=== PATIENT | female | born 1995 ===

== ENCOUNTER 2025-05-30 17:58 | Emergency (ER) | payer OTHER, SELFPAY ==
--- OUTSIDE RECORDS SUMMARY | 2024-04-28 07:30 | XMS_ITS ---
Author Organization [facility] Address [address] [place] [id number] Care Team Providers Care Photographer Apprentice Name Role Phone CHUY CHUN Unavailable [phone] REASON FOR VISIT depo/testing Social History Sex Assigned At : Social History Observation Description Sex Assigned At Female Encounters Encounter Location Date Provider Diagnosis [facility] [address] [place] [address] it[place], [place] [id number] 04/28/2024 CHUY CHUN Plan Of Treatment No Information Progress Notes * Sherry WILLIAMSON MDOB: [birth year] (30 yo F)Acc No.[id number]:04/28/2024 Progress Notes Patient: Grant Mcdonaldisha Teresita Provider: Wayne Chun NP :1995 A ge:29 Y S ex:Female Date:04/28/2024 Address:[address] [place], [place] [id number] Subjective: * Chief Complaints: * D epo/testing Billing Information: * Procedure Codes: * Electronic signature of COLETTE CHUN NP on 05/30/2025 at 09:48 PM EDT Sign off status: Pending * Provider: Wayne Chun NP Date: 04/28/2024 Generated for Printi ng/Faxing/eTransmitting on: 05/30/2025 09:48 PM EDT
[2025-05-30 18:05] VITALS: BP 143/66; PULSE 89; RESP 18; TEMP 36.9; O2SAT 100; BMI 47.1
--- NOTE | 2025-05-30 18:06 | ED.GENADULT ---
HPI - General Adult General Chief complaint: Allergic Reaction Stated complaint: Allergic reaction Time Seen by Provider: 05/30/25 18:05 Source: patient, RN notes reviewed and old records reviewed Mode of arrival: ambulatory Limitations: no limitations History of Present Illness ED Provider: Ilya [facility] narrative: Patient is a 30-year-old female presenting to the ED with complaint of bilateral eye itching, swelling and watery drainage after being around her parents' dog. Also complains of some congestion, shortness of breath and mild chest pain. States that she took Zyrtec prior to arrival which did improve some of her symptoms but not her eyes. Denies any changes in vision. Does not wear contact lenses. MD complaint: eye itching Onset (ago): hour(s) Related Data Previous Rx's ?Medication ?Instructions ?Recorded erythromycin 5 mg/gram (0.5 %) eye 0.5 inch ophthalmic (eye) BID 5 05/30/25 ointment days #3.5 grams prednisone 10 mg tablet See Rx Instructions .Route 05/30/25 .COMPLEX #15 tabs Allergies Allergy/AdvReac Type Severity Reaction Status Date / Time acetaminophen (From Tylenol) Allergy Intermediate Hives Verified 05/30/25 18:08 animal dander Allergy Intermediate Itching Verified 05/30/25 18:08 dog dander Allergy Intermediate Itching Verified 05/30/25 18:08 Review of Systems Review of Systems: As per HPI Yes all other systems are reviewed and are negative Constitutional: Constitutional: Reports as per HPI [facility] Social History Social History Advance Directives: No Advance Directives Information Provided: No Physical Exam ED Vital Signs: Vital Signs - 24 hr 05/30/25 18:05 Temperature 98.5 F Pulse Rate 89 Respiratory Rate 18 Blood Pressure 143/66 H Pulse Oximetry 100 Oxygen Delivery Method Room Air BMI result Body Mass Index 47.1 Vital signs have been reviewed and appear to be correct. Blood pressure normal. Heart rate normal. Respiratory rate normal. Temperature normal. Oxygen saturation normal. Const General: cooperative, healthy appearing and no acute distress Orientation/consciousness: oriented to person, oriented to place, oriented to time and patient oriented x3 Limitations: no limitations HENMT Head: Yes normocephalic and Yes atraumatic Ears: external ears normal General nose exam: Normal external nose present Face and sinus: Yes face symmetric Mouth: oropharynx normal and moist mucous membranes Throat: Yes uvula midline and No uvular edema Eyes Visual Marin: normal visual marin by confrontation Alignment and Position: alignment normal and position normal Eyelids: Yes eyelid abnormality (swelling and erythema to bilateral upper eyelids) Conjunctivae: conjunctival abnormal bilateral conjunctival injection diffuse and discharge other (watery) Corneas: corneas normal Pupils: Equal, round and reactive pupils present and Pupil accommodation reflex normal EOM: EOMs intact bilaterally Neck Neck: Yes normal visual inspection and Yes supple Resp Effort & Inspection: normal respiratory effort and able to speak in complete sentences Auscultation: clear to auscultation bilaterally Cardio Rate: regular rate Rhythm: regular rhythm Heart sounds: S1 normal heart sound present and S2 normal heart sound present GI Palpation (GI): Soft to palpation and nontender Auscultation: normoactive bowel sounds General: Yes no CVA tenderness Back/Spine/Pelvis Back: no CVA tenderness Skin General skin exam: elasticity normal and turgor normal Neuro General: oriented to person, oriented to place, oriented to time, patient oriented x3, moves all extremities, no focal motor deficits and CN's II-XI intact bilaterally Cranial nerves: Yes Equal, round and reactive pupils present Cognition (Neuro): normal cognition Extrem General: Yes full ROM, Yes no pedal edema and Yes no calf tenderness Psych Mental Status: mental status grossly normal Affect: normal affect Thought process: Normal thought process present Medical Decision Making Medical Decision Making [facility] Narrative: Patient is a 30-year-old female presenting to the ED with complaint of bilateral eye itching, swelling and watery drainage after being around her parents' dog. On exam patient is awake, A+Ox3, VS WNL, afebrile, normal neurological exam without focal deficits, physical exam findings as above. Given reported symptoms and physical exam findings, initial differential includes but is not limited to allergic rhinitis, allergic versus viral versus bacterial conjunctivitis. HPI consistent with allergic conjunctivitis. EKG shows NSR. Will start patient on course of prednisone, advised that she continue with Zyrtec. Will also send prescription for erythromycin ointment. Return precautions discussed. Patient verbalized understanding of and agreement with plan. Differential Diagnosis Differential Diagnoses: The differential diagnosis associated with the presentation includes as per mdm Independent Interpretation I performed an independent interpretation of an: EKG (normal sinus rhythm, rate 80bpm, normal UT interval and QTc) External Record Review External record reviewed: Inpatient record, Office record and Outpatient record Prescription Management I considered prescription management with: Antibiotic and Other Discharge Plan Discharge Clinical Impression: Acute allergic conjunctivitis of both eyes Patient Disposition: Home, Self-Care Instructions: Conjunctivitis (ED) Additional Instructions: You were evaluated in the emergency department today for eye redness, itching, and discharge. You are being treated for conjunctivitis with antibiotic ointment. You are also being treated with prednisone which is a steroid to decrease inflammation. Please complete the full courses as prescribed. Continue to take a daily Zyrtec. Be sure to wash hands thoroughly before and after touching your eyes. You should follow up with your primary care provider or retail sales manager this week. Return to the emergency department if you develop changes in vision, increasing pain, fever 100.4F or greater, or any other concerning symptoms. Prescriptions: New prednisone 10 mg tablet See Rx Instructions .ROUTE .COMPLEX Qty: 15 0RF Rx Instructions: 50mg (5 tabs) x1 day, then 40 mg (4 tabs) x1 day, then 30 mg (3 tabs) x1 day, then 20 mg (2 tabs) times 1 day, then 10 mg (1 tab) x1 day erythromycin 5 mg/gram (0.5 %) ointment 0.5 inch ophthalmic (eye) BID 5 Days Qty: 3.5 0RF Print Language: Citizen [place]
--- NOTE | 2025-05-30 18:10 | ECG_ITS ---
Test Reason : CP Blood Pressure : */* mmHG Vent. Rate : 80 BPM Atrial Rate : 80 BPM P-R Int : 138 ms QRS Dur : 86 ms QT Int : 380 ms P-R-T Axes : 49 51 11 degrees QTcB Int : 438 ms Normal sinus rhythm Normal ECG No previous ECGs available Referred By: Uma Caraballo Electronically Signed By: SLIM MACKENZIE
--- OUTSIDE RECORDS SUMMARY | 2025-05-30 21:49 | XMS_ITS | Clinical Summary ---
Author Organization [facility] Address [address] [place] [address] Phone Care Team Providers Care Systems Administrator Name Role Phone Unknown, Unknown Primary Care Provider Jai Alexander MD Unavailable [phone] Allergies Active Allergy Reactions Criticality Noted Date Comments Acetaminophen Rash Low 02/26/2019 Acetaminophen 10/15/2022 Medications * This document contains information received from the source organization and may not represent a complete record from that organization. ibuprofen (ADVIL,MOTRIN) 600 MG tablet Take 1 tablet (600 mg total) by mouth every 8 (eight) hours as needed for pain (specific location in comments) or fever. 15 tablet 0 Active bacitracin 500 unit/gram ointment Apply topically 2 (two) times a day. Apply to face and arms. 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/26/2019 Immunizations Immunization Administration Dates Next Due Tdap 10/12/2022 Family History Medical History Relation Comments Autism Brother Hyperlipidemia Father Hypertension Father Diabetes Maternal Grandfather Heart disease Maternal Grandmother Hearing loss Maternal Uncle Mental retardation Maternal Uncle Thyroid disease Mother COPD Paternal Grandmother Diabetes Paternal Grandmother Relation Status Comments Brother Father Maternal Grandfather Maternal Grandmother Maternal Uncle Mother Paternal Grandmother Social History Tobacco Use Types Packs/Day Years Used Date Smoking Tobacco: Every Day Cigarettes Smokeless Tobacco: Never Tobacco Cessation:Ready to Q uit: Not Asked; Counseling Given: Not Answered Alcohol Use Standard Drinks/Week Comments Yes 0 (1 standard drink = 0.6 oz pur e alcohol) Education Answer Date Recorded Are you interested in more education? Not on margaret e 01/11/2023 Are you concerned about learning? Not on file 01/11/2023 No 01/11/2023 No 01/11/2023 Digital Access Answer Date Recorded No 02/11/2023 No 02/11/2023 Reliable internet access at home? Not on file 02/11/2023 Device with a working camera? Not on file Comments No Sex and Gender Information Value Date Recorded Sex Assigned at Female 10/22/2022 3:50 PM EST Legal Sex Female 4:39 PM EST Gender Identity Female 10/22/2022 3:50 PM EST Sexual Orientation Straight 10/22/2022 3: 50 PM EST Last Filed Vital Signs Vital Sign Reading Time Taken Comments Blood Pressure 130/84 10/23/2022 11:30 AM EST Pulse 87 10/23/2022 11:30 AM EST Temperature 36.9 C (98.5 F) 10/23/2022 11:30 AM EST Respiratory Rate 18 10/12/2022 8:43 PM EST Oxygen Saturation 98% 10/23/2022 11:30 AM EST Inhaled Oxygen Concentration - - Weight 120.2 kg (265 lb) 10/12/2022 6:59 PM EST Height 160 cm (5' 3 ) 10/12/2022 6:59 PM EST Body Mass Index 46.94 10/12/2022 6:59 PM EST Plan of Treatment Health Maintenance Due Date Last Done Comments DEPRESSION SCREENING 2005 SMOKING Hx and SMOKELESS TOBACCO SCREENING 2006 HEPATITIS C SCREENING 2011 HIV ONE-TIME SCREENING (18-65 YEARS) 2011 PNEUMOCOCCAL VACCINES (0-49 years) (1 of 2 - PCV) 2012 PAP SMEAR 2014 INFLUENZA VACCINE (#1) 2025 COVID-19 VACCINE (2 - 2024- season) 2025 06/08/2021 Adult Td,Tdap Booster 10/12/2032 10/12/2022 , 05/17/2021, 07/26/2016, Additional history exists HIB VACCINES Completed 06/25/1994, 01/1994, 1993, Additional history exists MENINGOCOCCAL VACCINES (ACWY) Completed 02/27/2012, 07/10/2007 HEPATITIS A VACCINES Aged Out No long er eligible based on patient's age to complete this topic MENINGOCOCCAL VACCINES (B) Aged Out N o longer eligible based on patient's age to complete this topic Medical Devices Not on file [facility] [place] [address] [facility] [address] [place], [place] [address] [place] [address] [facility] [employer] [facility] [address] [place], [place] [address] [place], [place] [address] [employer] Advance Directives For more information, please contact: [phone] (9AM - 5PM [facility], Friday-Friday) * Full Code (Presumed) (Latest Code Status on File) Date Activated Date Inactivated Comments 02/26/2019 1:29 AM 03/02/2019 7:43 PM Care Teams Systems Administrator Relationship Specialty Start Date End Date Unknown, Unknown, PCP - General 10/12/22 Jai Morfin MD [address] [place] [address] Internal Medicine 10/12/22 Additional Source Comments The information contained in this document represents components of the legal health record. It is not the complete legal health record.[facility]
--- OUTSIDE RECORDS SUMMARY | 2025-05-30 21:49 | XMS_ITS | Patient Health Record ---
Author Organization [facility] Address [address] [place] [phone] Support Name Relationship Address Phone Sherry Buckley Guarantor Unknown [phone] Allergies Allergen (clinical drug ingredient) Drug/Non Drug Allergy documented on EMR Reaction Allergy Type Onset Date Status seasonal (uncoded) Unknown Allergy A ctive acetaminophen Tylenol Unknown Drug Allergy Act florencio Reason For Referral No Information Medications Medication SIG (Take, Route, Frequency, Duration) Notes Start Date End Date Status Doxycycline Hyclate 100 MG Tablet 1 tablet Orally Twice daily; Duration: 7 days 01/19/2024 Active Depo-Provera Not-Richard ing/PRN Depo-Provera 150 MG/ML Suspension 1 mL Intramuscular 07/14/2023 Activ e Cetirizine HCl Activ e Social History Sex Assigned At : Social History Observation Description Sex Assigned At Female Social History HIV Risk Assessment Social Info Question Answer Notes Additional Questions Is an HIV Risk Assessment being c onducted? Yes Have you been tested for HIV before? Yes Did you have a blood transfusion prior to 1985? No Reproductive Life Plan: Social Info Question Answer Notes Reproductive Life Plan: Do you want to have children? Yes How long would you like to wait until you/your partner becomes ? 1 - 5 years Human Trafficking: Social Info Question Answer Notes Human Trafficking Experienced: No Sexual History: Social Info Question Answer Notes Sexual History: Sexual History Reviewed: Partner s, Practices, Protection/Past STIs, Prevention of , ___ Currently sexually active? Yes Sexually active with: Men Number of male partners 1 Your sexual activities include: anal intercourse, oral intercourse, vaginal intercourse Do you use condoms? No Number of partners in past 3 months: 1 Number of partners in past year: 3 What is the client's primary method to prevent at the end of their visit? Hormone Injection (Depo) Does your partner(s) currently have any STIs? No Counseling Provided: Social Info Question Answer Notes Counseling Provided Please indicate the length of time, in minutes, that counseling was provided. 6 Counseling Was Provided By: samantha Drugs/Alcohol: Social Info Question Answer Notes Drug/Alcohol Use Do you or have you used drugs? No Do you or have you used alcohol? Yes, currently socially Food Access: Social Info Question Answer Notes Food Access The Client's current access to food is Secure Food Access Relationships: Social Info Question Answer Notes Relationships Has the client exper ienced any of the following: Reproductive Coercion, Harmful Relationships, Sexual Coercion, Exchanged Sex for. . . , Client has never experienced harmful relationships, ___ Emotionally Yes clt feels safe, clt has a th erapist Currently: No Physically: Yes Currently: No Sexually: No Been forced or pressured into sexual activities? No drugs, group home, safety, other. No Housing Social Info Question Answer Notes Housing The client's current living situation is: stable housing Tobacco Use: Social Info Question Answer Notes Tobacco Use: Do you/have you used tobacco? No Tobacco Smoking Status Never smoker Plan Of Treatment No Information Insurance Providers Payer Name Payer Address Payer Phone Subscriber Number Group Number Insured Name Patient Relationship to Insured Coverage Start Date Coverage End Date [facility] [address] [place], [place] [id number] Sherry Buckley Self - patient is the insured Medications Administered Medication Instructions Date of Administration Dosage Notes Depo 150mg 07/14/2023 Depo 150mg 10/06/2023 Medroxyprogesterone Acetate 01/15/2024 150 mg given by MORTGAGE PROTECTION SPECIALIST student Medical (General) History Medical History History ICD Code Migraines/severe headaches Abnormal pap smear Gall bladder problems depression CT positive Surgical History Surgery Date(Month/Year) gallbladder tonsils removed Hospitalization History Reason Date(Month/Year) childbirth
== END 2025-05-30 19:19 | disposition home or self-care (01) ==
PROVIDERS: Emergency Provider Emergency Medicine
DX: H10.13 Acute atopic conjunctivitis, bilateral (principal)
CPT/HCPCS: 93005; 99283

== ENCOUNTER → 2025-05-30 18:10 | Outpatient (BNV) | payer OTHER, SELFPAY | PROVIDERS: Emergency Provider Emergency Medicine; Visit Provider Internal Medicine | DX: R07.9 Chest pain, unspecified (principal) | CPT/HCPCS: 93010 ==